=== PATIENT | male | born 2000 | race Hispanic/Latino ===

== ENCOUNTER 2022-02-16 03:33 | Emergency (ER) | payer BC, MEDICAID ==
[2022-02-16] MEDS ORDERED: Lorazepam (BATCHED) 2 MG/ML SYR ONE (03:47)
[2022-02-16] MEDS ORDERED: Ondansetron ODT 8 MG TAB ONE (05:49)
== END 2022-02-16 05:45 | disposition home or self-care (01) ==
LOC: ERS 03:33
DX: R00.2 Palpitations (principal); F41.9 Anxiety disorder, unspecified; T40.715A Adverse effect of cannabis, initial encounter
CPT/HCPCS: 93005; 96361; 96374; J2060; Q0162